=== PATIENT | female | born 1965 | race Caucasian/White ===

== ENCOUNTER → 2024-07-03 13:38 | Outpatient (REF) | payer BC, SELFPAY | LOC: WDC 13:38 | PROVIDERS: ATTENDING PHYSICIAN Obstetrics & Gynecology Gynecology; FAMILY PHYSICIAN Family Medicine | DX: Z12.31 Encounter for screening mammogram for malignant neoplasm of breast (principal) | CPT/HCPCS: 77063; 77067 ==

== ENCOUNTER 2024-11-02 06:30 | Day surgery (SDC) | payer BC, SELFPAY ==
[2024-11-02] VITALS (11 sets, daily range): BP systolic 125–144; BP diastolic 67–83; BMI 47.9
[2024-11-02] MEDS: CELEBREX 200 MG PO (08:06)
[2024-11-02] MEDS: TYLENOL 1000 MG PO (08:06)
[2024-11-02] MEDS: NORMOSOL-R/PLASMALYTE-A 1000 IV (08:18)
== END 2024-11-02 13:30 | disposition home or self-care (01) ==
LOC: SDS 06:30
PROVIDERS: ATTENDING PHYSICIAN Orthopaedic Surgery
DX: S46.011A Strain of muscle(s) and tendon(s) of the rotator cuff of right shoulder, initial encounter (principal); S46.211A Strain of muscle, fascia and tendon of other parts of biceps, right arm, initial encounter; X58.XXXA Exposure to other specified factors, initial encounter
CPT/HCPCS: 29827; C1713